=== PATIENT | female | born 1985 | race American Indian/Alaskan Native ===

== ENCOUNTER 2018-08-27 12:01 | Emergency (ER) | payer OTHER ==
[2018-08-27 12:22] VITALS: TEMP 98.5; O2SAT 98
--- NOTE | 2018-08-27 12:41 | C.PDOC ---
History Of Present Illness 33 year old female patient with social history of smoking presents to the emergency room c/o fever, cough, shortness of breath and wheezing for x4 days. Patient reports one episode of vomiting yesterday. She denies diarrhea, rash, recent travels and history of asthma. Time Seen by Provider: 08/27/18 12:10 Chief Complaint (Nursing): Flu-like Symptoms History Per: Patient History/Exam Limitations: no limitations Onset/Duration Of Symptoms: Days (x4) Current Symptoms Are (Timing): Still Present Past Medical History Reviewed: Historical Data, Nursing Documentation, Vital Signs Vital Signs: Last Vital Signs Temp 98.5 F 08/27/18 12:05 Pulse 104 H 08/27/18 12:05 Resp 18 08/27/18 12:05 BP 142/94 H 08/27/18 12:05 Pulse Ox 98 08/27/18 12:05 Family History: States: No Known Family Hx - Social History Hx Alcohol Use: Yes Hx Substance Use: No - Immunization History Hx Tetanus Toxoid Vaccination: No Hx Influenza Vaccination: No Hx Pneumococcal Vaccination: No Review Of Systems Except As Marked, All Systems Reviewed And Found Negative. Constitutional: Positive for: Fever. Negative for: Other (recent travels; history of asthma ) Respiratory: Positive for: Cough, Shortness of Breath, Wheezing Gastrointestinal: Negative for: Diarrhea Skin: Negative for: Rash Physical Exam - Physical Exam Appears: Non-toxic, No Acute Distress Skin: Warm, Dry, No Rash Head: Normacephalic Eye(s): bilateral: Normal Inspection, PERRL, EOMI Ear(s): Bilateral: Normal Oral Mucosa: Moist Throat: Normal Neck: Normal ROM, Supple Chest: Symmetrical Cardiovascular: Rhythm Regular, No Friction Rub, No Murmur Respiratory: No Decreased Breath Sounds, No Rales, Rhonchi (scattered ), No Wheezing Gastrointestinal/Abdominal: Soft, No Tenderness Back: Normal Inspection, No CVA Tenderness Extremity: Normal ROM, No Tenderness, No Swelling Neurological/Psych: Oriented x3, Normal Speech, Normal Motor Gait: Steady ED Course And Treatment O2 Sat by Pulse Oximetry: 98 (RA) Pulse Ox Interpretation: Normal - Other Rad chest X-Ray: Read By Radiologist Interpretation: Accession No. : [id number]. Patient Name / ID : TNAO Thibodeaux / [id number]. Exam Date : 08/27/2018 12:58:58 ( Approved ). Study Comment : Sex / Age : F / 33Y. Creator : Rosa Agee MD. Dictator : Rosa Agee MD. Extractions Technician : Security Software Engineer : Rosa Agee MD. Approver2 : Report Date : 08/27/2018 13:13:35. My Comment : . HISTORY: COUGH, FEVER. COMPARISON: No prior study available for comparison. TECHNIQUE: Chest PA and lateral. FINDINGS: LUNGS: No focal consolidation. 6 mm nodular opacity in the right lung apex at the level of the 7th posterior rib. Please note that chest x-ray has limited sensitivity for the detection of pulmonary masses. PLEURA: No significant pleural effusion identified. No definite pneumothorax . CARDIOVASCULAR: Heart size appears within normal limits. No atherosclerotic calcification present. Probable calcified right hilar lymph nodes. OSSEOUS STRUCTURES: Thoracolumbar Garcia rods partially imaged. VISUALIZED UPPER ABDOMEN: Unremarkable. OTHER FINDINGS: None. IMPRESSION: Probable calcified right hilar lymph nodes. 6 mm nodular opacity in the right lung apex at the level of the 7th posterior rib; possible pulmonary nodule versus calcified granuloma. Recommend correlation with prior outside imaging if available. CT of the chest may be considered for further evaluation if indicated. No focal consolidation. Medical Decision Making Medical Decision Making: Plans: -- CXR On re-exam, the patient the patient reports improvement of symptoms. Lungs are CTA, heart is RRR, abdomen is soft, non-tender and tolerating PO well. The patient is ambulatory in the ED with steady gait. Follow up with the medical doctor within 1-2 days. Return if worsened. Disposition Counseled Patient/Family Regarding: Smoking Cessation (discussed smoking cessation for 8 minutes) - Disposition Referrals: [facility] [Outside] [facility] [Outside] Disposition: HOME/ ROUTINE Disposition Time: 13:53 Condition: STABLE Additional Instructions: Follow up with the medical doctor within 1-2 days. Return if worsened. 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 - Scribe Statement The provider has reviewed the documentation as recorded by the Zurdo Metzger Do All medical record entries made by the Scribe were at my direction and personally dictated by me. I have reviewed the chart and agree that the record accurately reflects my personal performance of the history, physical exam, medical decision making, and the department course for this patient. I have also personally directed, reviewed, and agree with the discharge instructions and disposition.
--- NOTE | 2018-08-27 13:17 | RAD ---
HISTORY: COUGH, FEVER COMPARISON: No prior study available for comparison. TECHNIQUE: Chest PA and lateral FINDINGS: LUNGS: No focal consolidation. 6 mm nodular opacity in the right lung apex at the level of the 7th posterior rib. Please note that chest x-ray has limited sensitivity for the detection of pulmonary masses. PLEURA: No significant pleural effusion identified. No definite pneumothorax . CARDIOVASCULAR: Heart size appears within normal limits. No atherosclerotic calcification present. Probable calcified right hilar lymph nodes. OSSEOUS STRUCTURES: Thoracolumbar Garcia rods partially imaged. VISUALIZED UPPER ABDOMEN: Unremarkable. OTHER FINDINGS: None. IMPRESSION: Probable calcified right hilar lymph nodes. 6 mm nodular opacity in the right lung apex at the level of the 7th posterior rib; possible pulmonary nodule versus calcified granuloma. Recommend correlation with prior outside imaging if available. CT of the chest may be considered for further evaluation if indicated. No focal consolidation.
[2018-08-27 14:05] VITALS: BP 135/85; PULSE 74; RESP 16
== END 2018-08-27 14:04 | disposition home or self-care (01) ==
LOC: C.ER 12:01
DX: J20.9 Acute bronchitis, unspecified (principal); F17.210 Nicotine dependence, cigarettes, uncomplicated